=== PATIENT | female | born 1985 | race Caucasian/White ===

== ENCOUNTER 2016-11-20 21:13 | Emergency (ER) | payer OTHER ==
--- NOTE | 2016-11-20 23:13 | ED NURSING NOTES ---
Clinical Report - Nurses [facility] [address] [place] [address] 11/20/2016 21:13 Patient: HARRY QUINTERO TRIAGE Triage time 21:Nov 20 2016. Acuity: LEVEL 3. Chief Complaint: FEVER, CHILLS, HEADACHE, DYSPNEA and COUGH (body aches,). SEPSIS SCREEN: Sepsis Screen: negative. Infection suspected/documented. GORDON COMA SCORE: Gordon Coma Scale: 15- eyes open spontaneously (4); best verbal response- oriented x 4 (5); best motor response- obeys commands (6). --21:30 Urvashi Valerio 21:26 11/20/16. BP: 110/72. HR: 101. RR: 20. O2 saturation: 96% on room air. Temp: 97.7 F (oral). Pain level now: 5/10. --21:30 Urvashi Valerio. Weight: 68 kg stated. Height/Length: 69 inches Per Patient. BMI: 22.2. --21:29 Urvashi Valerio. Medications Iron Oral. --21:28 Urvashi Valerio. Allergies No Known Drug Allergy. --21:29 Urvashi Valerio. Medication/allergy information source: the patient. --21:30 Urvashi Valerio. History Arrived by private vehicle. Historian: patient. Accompanied by family. Primary physician ([facility]). Onset. (3 days ago). ( Patient reports that she has been feeling sick for three days. She reports that there are people at work with the flu. Patient reports that her hand have been turning pale, she feels weak, her throat hurts, and she has been having body aches.). 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 PAST MEDICAL HX: Immunizations: up-to-date. Last normal menstrual period now. SOCIAL HX: Light tobacco smoker (cigarette)- less than 1/2 a pack per day. No alcohol use or drug use. No infectious disease exposure. ABUSE ASSESSMENT: No report of abuse. FALL RISK ASSESSMENT: Fall risk assessment completed. No fall risk identified. NUTRITIONAL RISK ASSESSMENT: The nutritional risk assessment revealed no deficiencies. FUNCTIONAL ASSESSMENT: Functional assessment: no impairments noted. LEARNING NEEDS ASSESSMENT: The learning needs assessment revealed no barriers. SKIN INTEGRITY ASSESSMENT: Skin integrity risk assessment completed. No skin integrity risk identified. --21:30 Urvashi Valerio. PROBLEMS: Anemia. MRSA Infection. Abscess. --21:30 Urvashi Valerio. ADDITIONAL SURGERIES: Appendectomy. --21:30 Urvashi Valerio. Interventions ID band on patient. To treatment room. --21:30 Urvashi Valerio. NURSING PROGRESS NOTES <<STRICKEN ENTRY-- 22:38 11/20/16. BP: 103/68. HR: 101. RR: 20. O2 saturation: 95% on room air. Temp: 102.9 F (oral). Pain level now: 07/12. --22:41 Urvashi Valerio --END STRIKE>> Charted on wrong patient. --23:22 Urvashi Valerio ( Provider notified of vitals). --22:42 Urvashi Valerio 21:30 11/20/16. Pulse oximeter and NIBP monitor placed on patient. Patient gowned. Warming measures: blanket applied. Reassurance given to the patient. Lights dimmed. Two patient identifiers checked. Call light placed in reach. Side rails up x 1. Bed placed in lowest position. Brakes of bed on. Patient ready for evaluation- chart flagged and ED physician notified. --02:13 Urvashi Valerio 22:30 11/20/16. ( Provider ordered patient fluids and zofran, patient prefers to go home and hydrate. Provider notified and patient to be discharged.). --02:14 Urvashi Valerio 23:20 11/20/2016 Ibuprofen PO Tablets 400 mg given. Allergies verified and confirmed 5 rights. --23:20 Urvashi Valerio. DISPOSITION / DISCHARGE 23:11/20/16. Condition at departure: stable. No learning barriers present. Discharge instructions provided and reviewed with the patient and spouse. Reviewed medication(s) side effects, precautions, dosing and course information. Prescription(s) given to the patient. Reviewed need for increased fluid intake. Patient verbalized understanding. Written instructions provided in Maori. The patient was discharged by the physician. She was discharged home and accompanied by spouse. She left the Emergency Department ambulatory and via private vehicle. Spouse driving. --01:56 Urvashi Valerio 23:30 11/20/16. BP: 103/75. HR: 72. RR: 20. O2 saturation: 99% on room air. Temp: 98.1 F (oral). Pain level now: 03/11. --01:56 Urvashi Valerio. Locked/Released at 11/21/2016 2:15 by Urvashi Valerio,
--- NOTE | 2016-11-20 23:13 | ED ORDER SUMMARY ---
..... Patient: HARRY QUINTERO OrderSheet [facility] VisitID: [id number] [place] [address] 30y, F Registration Date/Time: 11/20/2016 ORDER SHEET Weight: 68.0 kg (stated) Allergies: No Known Drug Allergy GENERAL ORDERS: Rapid Influenza Screen (Nasal Pharyngeal) (nsal pharyngeal ) Urgent (21:32 11/20/2016 HSoule per protocol) (Ack 21:32 HSoule) (2:15 HSoule) CBC w Diff Urgent (22:45 11/20/2016 Sami PAREDES) (23:03 Sami PAREDES) (Cancelled: Other23:03 Sami PAREDES) CMP Urgent (22:45 11/20/2016 Sami PAREDES) (23:03 Sami PAREDES) (Cancelled: Other23:03 Sami PAREDES) UA-Culture if indicated Urgent (22:45 11/20/2016 Sami PAREDES) (23:03 Sami PAREDES) (Cancelled: Other23:03 Sami PAREDES) Amylase Urgent (22:45 11/20/2016 Sami PAREDES) (23:03 Sami PAREDES) Lipase Urgent (22:45 11/20/2016 Sami PAREDES) (23:03 Sami PAREDES) (Cancelled: Other23:03 Sami PAREDES) Urine Urgent (22:45 11/20/2016 Sami PAREDES) (23:02 Sami PAREDES) (Cancelled: Other23:03 Sami PAREDES) MEDICATION ORDERS: Ibuprofen PO 400 mg (NOW) (23:07 11/20/2016 Sami PAREDES) (Ack 23:11 HSoule) (23:20 HSoule) IV FLUIDS: IV NS : initial bolus 500 mL (1000 mL/hr), then 125 mL/hr for 4h (NOW); Urgent (22:45 11/20/2016 Sami PAREDES) (Ack 23:11 HSoule) (Cancelled: Physician Order23:23 HSoule) Zofran IV 4 mg (NOW) (22:45 11/20/2016 Sami PAREDES) (Ack 23:11 HSoule) (Cancelled: Patient to have PO zofran, IV orders d/c by provider 23:23 [facility]) ORDER SHEET NOTES: [Electronically signed by Urvashi Valerio (02:15 11/21/2016)] [Electronically signed by Berhane Gilbert MD (05:02 11/21/2016)] [Electronically locked/signed by Urvashi Valerio (02:15 11/21/2016)]
--- NOTE | 2016-11-20 23:13 | ED NURSING NOTES ---
Clinical Report - Nurses [facility] [address] [place] [address] 11/20/2016 21:13 Patient: HARRY QUINTERO TRIAGE Triage time 21:Nov 20 2016. Acuity: LEVEL 3. Chief Complaint: FEVER, CHILLS, HEADACHE, DYSPNEA and COUGH (body aches,). SEPSIS SCREEN: Sepsis Screen: negative. Infection suspected/documented. GORDON COMA SCORE: Gordon Coma Scale: 15- eyes open spontaneously (4); best verbal response- oriented x 4 (5); best motor response- obeys commands (6). --21:30 Urvashi Valerio 21:26 11/20/16. BP: 110/72. HR: 101. RR: 20. O2 saturation: 96% on room air. Temp: 97.7 F (oral). Pain level now: 5/10. --21:30 Urvashi Valerio. Weight: 68 kg stated. Height/Length: 69 inches Per Patient. BMI: 22.2. --21:29 Urvahsi Valerio. Medications Iron Oral. --21:28 Urvashi Valerio. Allergies No Known Drug Allergy. --21:29 Urvashi Valerio. Medication/allergy information source: the patient. --21:30 Urvashi Valerio. History Arrived by private vehicle. Historian: patient. Accompanied by family. Primary physician ([facility]). Onset. (3 days ago). ( Patient reports that she has been feeling sick for three days. She reports that there are people at work with the flu. Patient reports that her hand have been turning pale, she feels weak, her throat hurts, and she has been having body aches.). 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 PAST MEDICAL HX: Immunizations: up-to-date. Last normal menstrual period now. SOCIAL HX: Light tobacco smoker (cigarette)- less than 1/2 a pack per day. No alcohol use or drug use. No infectious disease exposure. ABUSE ASSESSMENT: No report of abuse. FALL RISK ASSESSMENT: Fall risk assessment completed. No fall risk identified. NUTRITIONAL RISK ASSESSMENT: The nutritional risk assessment revealed no deficiencies. FUNCTIONAL ASSESSMENT: Functional assessment: no impairments noted. LEARNING NEEDS ASSESSMENT: The learning needs assessment revealed no barriers. SKIN INTEGRITY ASSESSMENT: Skin integrity risk assessment completed. No skin integrity risk identified. --21:30 Urvashi Valerio. PROBLEMS: Anemia. MRSA Infection. Abscess. --21:30 Urvashi Valerio. ADDITIONAL SURGERIES: Appendectomy. --21:30 Urvashi Valerio. Interventions ID band on patient. To treatment room. --21:30 Urvashi Valerio. NURSING PROGRESS NOTES <<STRICKEN ENTRY-- 22:38 11/20/16. BP: 103/68. HR: 101. RR: 20. O2 saturation: 95% on room air. Temp: 102.9 F (oral). Pain level now: 07/12. --22:41 Urvashi Valerio --END STRIKE>> Charted on wrong patient. --23:22 Urvashi Valerio ( Provider notified of vitals). --22:42 Urvashi Valerio 21:30 11/20/16. Pulse oximeter and NIBP monitor placed on patient. Patient gowned. Warming measures: blanket applied. Reassurance given to the patient. Lights dimmed. Two patient identifiers checked. Call light placed in reach. Side rails up x 1. Bed placed in lowest position. Brakes of bed on. Patient ready for evaluation- chart flagged and ED physician notified. --02:13 Urvashi Valerio 22:30 11/20/16. ( Provider ordered patient fluids and zofran, patient prefers to go home and hydrate. Provider notified and patient to be discharged.). --02:14 Urvashi Valerio 23:20 11/20/2016 Ibuprofen PO Tablets 400 mg given. Allergies verified and confirmed 5 rights. --23:20 Urvashi Valerio. DISPOSITION / DISCHARGE 23:11/20/16. Condition at departure: stable. No learning barriers present. Discharge instructions provided and reviewed with the patient and spouse. Reviewed medication(s) side effects, precautions, dosing and course information. Prescription(s) given to the patient. Reviewed need for increased fluid intake. Patient verbalized understanding. Written instructions provided in Kiswahili. The patient was discharged by the physician. She was discharged home and accompanied by spouse. She left the Emergency Department ambulatory and via private vehicle. Spouse driving. --01:56 Urvashi Valerio 23:30 11/20/16. BP: 103/75. HR: 72. RR: 20. O2 saturation: 99% on room air. Temp: 98.1 F (oral). Pain level now: 03/11. --01:56 Urvashi Valerio. Locked/Released at 11/21/2016 2:15 by Urvashi Valerio,
--- NOTE | 2016-11-20 23:13 | ED CLINICAL REPORT ---
Clinical Report - Physicians/Mid Levels [facility] [address] [place] [address] 11/20/2016 21:13 Patient: HARRY QUINTERO Time Seen: 22:24. Arrived- By private vehicle. Historian- patient. HISTORY OF PRESENT ILLNESS Chief Complaint: COUGH, MUSCLE ACHES and "FLU". This started several days ago and is still present. It was gradual in onset and has been constant and waxing/waning. The illness is described as severe. The patient has had a cough, a sore throat, fever, chills and muscle aches. She has had moderate amounts of thick, yellow sputum. No difficulty breathing or chest discomfort. Additional history - The patient has had contact with a sick coworker. They have had similar symptoms. REVIEW OF SYSTEMS The patient has had fever and chills and experienced sweats. No calf pain, chest pain, difficulty breathing, pedal edema or palpitations. No abdominal pain, constipation, diarrhea, nausea or vomiting. No urinary problems. All systems otherwise negative, except as recorded above. PAST HISTORY Problems: Anemia. MRSA Infection. Abscess. Medications: Iron Oral. Allergies: No Known Drug Allergy. SOCIAL HISTORY Current every day light tobacco smoker (cigarette)- less than 1/2 a pack per day. FAMILY HISTORY Denies family medical history. ADDITIONAL NOTES The nursing notes have been reviewed. PHYSICAL EXAM Vital Signs: 11/20/2016 21:26 BP: 110/72. HR: 101. RR: 20. O2 saturation: 96%. Temp: 97.7 F. Pain level now: 5/10. Have been reviewed. Appearance: Alert. Eyes: Pupils equal, round and reactive to light. ENT: Minimal, thin, clear nasal discharge present. Pharynx normal. Neck: Normal inspection. Neck supple. No meningeal signs or lymphadenopathy. CVS: Normal heart rate and rhythm. Heart sounds normal. Respiratory: No respiratory distress. (rattle over large airways that clears with cough). Abdomen: Soft and nontender. No organomegaly. Back: Normal inspection. Skin: Skin warm and dry. Normal skin color. Normal skin turgor. Extremities: Extremities exhibit normal ROM. No calf tenderness. No lower extremity edema. LABS, X-RAYS, AND EKG Laboratory Tests: Rapid Influenza Screen: (KLARISSA: 11/20/2016 21:10) ( MsgRcvd 11/20/2016 22:08) Final results SPECIMEN DESCRIPTION: NSAL PHARYNGEAL Test Result Flag Units (Reference) RAPID INFLUENZA SCREEN DATE: 11/20/16 INFLUENZA A: NEGATIVE SCREEN FOR INFLUENZA A INFLUENZA B: NEGATIVE SCREEN FOR INFLUENZA B . PROGRESS AND PROCEDURES Course of Care: Patient is stable. Patient/family counseled. Old medical records reviewed. Disposition: Discharged. Condition: stable. CLINICAL IMPRESSION Acute bronchitis. INSTRUCTIONS Do not work today, tomorrow. Drink plenty of fluids. Do not smoke- benefits of smoking cessation discussed (>3 -10 minutes). Seek medical help to quit smoking. Warnings: GENERAL WARNINGS: Return or contact your physician immediately if your condition worsens or changes unexpectedly, if not improving as expected, or if other problems arise. Prescription Medications: Albuterol HFA oral inhaler: inhale 2 puffs via spacer every 4 hours as needed. Dispense one (1) unit. No refill. Tessalon Perles 100 mg: take 1 orally every 8 hours as needed for cough. Dispense fifteen (15). No refills. Substitution is permissible. Zithromax 250 mg tablets: take 2 orally today, followed by 1 daily for the next 4 days. No refills. Substitution is permissible. OTC Medications: Acetaminophen (available over the counter): take according to label instructions. Motrin (available over the counter): take according to label instructions. Follow-up: Follow up with your doctor in five days if not better. Understanding of the discharge instructions verbalized by patient. (Electronically signed by Berhane Gilbert MD 11/21/2016 5:02)
--- NOTE | 2016-11-20 23:13 | ED ORDER SUMMARY ---
..... Patient: HARRY QUINTERO OrderSheet VisitID: [id number] [place] [address] 30y, F Registration Date/Time: 11/20/2016 ORDER SHEET Weight: 68.0 kg (stated) Allergies: No Known Drug Allergy GENERAL ORDERS: Rapid Influenza Screen (Nasal Pharyngeal) (nsal pharyngeal ) Urgent (21:32 11/20/2016 HSoule per protocol) (Ack 21:32 HSoule) (2:15 HSoule) CBC w Diff Urgent (22:45 11/20/2016 Sami PAREDES) (23:03 Sami PAREDES) (Cancelled: Other23:03 Sami PAREDES) CMP Urgent (22:45 11/20/2016 Sami PAREDES) (23:03 Sami PAREDES) (Cancelled: Other23:03 Sami PAREDES) UA-Culture if indicated Urgent (22:45 11/20/2016 Sami PAREDES) (23:03 Sami PAREDES) (Cancelled: Other23:03 Sami PAREDES) Amylase Urgent (22:45 11/20/2016 Sami PAREDES) (23:03 Sami PAREDES) Lipase Urgent (22:45 11/20/2016 Sami PAREDES) (23:03 Sami PAREDES) (Cancelled: Other23:03 Sami PAREDES) Urine Urgent (22:45 11/20/2016 Sami PAREDES) (23:02 Sami PAREDES) (Cancelled: Other23:03 Sami PAREDES) MEDICATION ORDERS: Ibuprofen PO 400 mg (NOW) (23:07 11/20/2016 Sami PAREDES) (Ack 23:11 HSoule) (23:20 HSoule) IV FLUIDS: IV NS : initial bolus 500 mL (1000 mL/hr), then 125 mL/hr for 4h (NOW); Urgent (22:45 11/20/2016 Sami PAREDES) (Ack 23:11 HSoule) (Cancelled: Physician Order23:23 HSoule) Zofran IV 4 mg (NOW) (22:45 11/20/2016 Sami PAREDES) (Ack 23:11 HSoule) (Cancelled: Patient to have PO zofran, IV orders d/c by provider 23:23 [facility]) ORDER SHEET NOTES: [Electronically signed by Urvashi Valerio (02:15 11/21/2016)] [Electronically signed by Berhane Gilbert MD (05:02 11/21/2016)] [Electronically locked/signed by Urvashi Valerio (02:15 11/21/2016)]
--- NOTE | 2016-11-21 05:03 | ED MAR SUMMARY ---
..... Medication Administration Record [facility] [address] [place] [address] Patient: HARRY QUINTERO Visit ID: [id number] 30y, F Weight: 68.0 kg Height/Length: 69 in BMI: 22.2 ALLERGIES: No Known Drug Allergy Given 23:20 11/20/2016 Urvashi Valerio, Medication Administered: IBUPROFEN [PO], Dose: 400 mg Tablets PO. Medication Ordered: Ibuprofen PO 400 mg (NOW).
--- NOTE | 2016-11-21 05:03 | ED DISCHARGE INSTRUCTIONS ---
Patient: HARRY QUINTERO General Instructions [facility] VisitID: [id number] [place] [address] 30y, F Registration Date/Time: 11/20/2016 Acute bronchitis. INSTRUCTIONS Do not work today, tomorrow. Drink plenty of fluids. Do not smoke- benefits of smoking cessation discussed (>3 -10 minutes). Seek medical help to quit smoking. Warnings: GENERAL WARNINGS: Return or contact your physician immediately if your condition worsens or changes unexpectedly, if not improving as expected, or if other problems arise. Prescription Medications: Albuterol HFA oral inhaler: inhale 2 puffs via spacer every 4 hours as needed. Dispense one (1) unit. No refill. Tessalon Perles 100 mg: take 1 orally every 8 hours as needed for cough. Dispense fifteen (15). No refills. Substitution is permissible. Zithromax 250 mg tablets: take 2 orally today, followed by 1 daily for the next 4 days. No refills. Substitution is permissible. OTC Medications: Acetaminophen (available over the counter): take according to label instructions. Motrin (available over the counter): take according to label instructions. Follow-up: Follow up with your doctor in five days if not better. Understanding of the discharge instructions verbalized by patient. ADDITIONAL INFORMATION Bronchitis (Adult: Abx Tx) BRONCHITIS is an infection of the air passages (bronchial tubes). It often occurs during the common cold. Symptoms include cough with mucus (phlegm) and low-grade fever. Bronchitis usually lasts 7-14 days. Mild cases can be treated with simple home remedies. More severe infection is treated with an antibiotic. Home Care: If symptoms are severe, rest at home for the first 2-3 days. When you resume activity, don't let yourself get too tired. Do not smoke. Avoid being exposed to the smoke of others. You may use acetaminophen (Tylenol) or ibuprofen (Motrin, Advil) to control fever or pain, unless another medicine was prescribed for this. [NOTE: If you have chronic liver or kidney disease or ever had a stomach ulcer or GI bleeding, talk with your doctor before using these medicines.] Your appetite may be poor, so a light diet is fine. Avoid dehydration by drinking 6-8 glasses of fluids per day (water, soft, drinks, juices, tea, soup, etc.). Extra fluids will help loosen secretions in the lungs. Iaxa-zvv-dhdvszt cough medicines that containdextromethorphan(such as Robitussin DM) and decongestants (Actifed or Sudafed) may help relieve cough and congestion. [NOTE: Do not use decongestants if you have high blood pressure.] Finish all antibiotic medicine, even if you are feeling better after only a few days. Follow Up with your doctor or as directed if you dont start to feel better after three days. [NOTE: If you are age 65 or older, or if you have chronic asthma or COPD, we recommend a PNEUMOCOCCAL VACCINATION every five years and a yearly INFLUENZAVACCINATION (FLU-SHOT) every . Ask your doctor about this. If you had an X-ray, a radiologist will review it. You will be notified of any new findings that may affect your care.] Get Prompt Medical Attention if any of the following occur: Fever over 100.4F (38.0C) for more than three days Trouble breathing, wheezing or pain with breathing Coughing up blood or increased amounts of colored sputum Weakness, drowsiness, headache, facial pain, ear pain or a stiff neck How To Quit Smoking Smoking is one of the hardest habits to break. About half of all those who have ever smoked have been able to quit, and most of those (about 70%) who still smoke want to quit. Here are some of the best ways to stop smoking. Keep Trying: It takes most smokers about 8 tries before they are finally able to fully quit. So, the more often you try and fail, the better your chance of quitting the next time! So, don't give up! Go Cold [place]: Most ex-smokers quit cold turkey. Trying to cut back gradually doesn't seem to work as well, perhaps because it continues the smoking habit. Also, it is possible to fool yourself by inhaling more while smoking fewer cigarettes. This results in the same amount of nicotine in your body! Get Support: Support programs can make an important difference, especially for the heavy smoker. These groups offer lectures, methods to change your behavior and peer support. Call the free national Quitline for more information. 546-ZTXG-CPT (711-173-6039). Low-cost or free programs are offered by many hospitals, local chapters of the [employer] (640-227-6079) and the [employer] (410-582-1764). Support at home is important too. Non-smokers can help by offering praise and encouragement. If the smoker fails to quit, encourage them to try again! Bbaw-Pab-Amzwwnt Medicines: For those who can't quit on their own, Nicotine Replacement Therapy (NRT) may make quitting much easier. Certain aids such as the nicotine patch, gum and lozenge are available without a prescription. However, it is best to use these under the guidance of your doctor. The skin patch provides a steady supply of nicotine to the body. Nicotine gum and lozenge gives temporary bursts of low levels of nicotine. Both methods take the edge off the craving for cigarettes. WARNING: If you feel symptoms of nicotine overdose, such as nausea, vomiting, dizziness, weakness, or fast heartbeat, stop using these and see your doctor. Prescription Medicines: After evaluating your smoking patterns and prior attempts at quitting, your doctor may offer a prescription medicine such as bupropion (Zyban, Wellbutrin), varenicline (Chantix, Champix), a niocotine inhaler or nasal spray. Each has its unique advantage and side effects which your doctor can review with you. Health Benefits Of Quitting: The benefits of quitting start right away and keep improving the longer you go without smokin minutes: blood pressure and pulse return to normal 8 hours: oxygen levels return to normal 2 days: ability to smell and taste begins to improve as damaged nerves start to regrow 2-3 weeks: circulation and lung function improves 1-9 months: decreased cough, congestion and shortness of breath; less tired 1 year: risk of heart attack decreases by half 5 years: risk of lung cancer decreases by half; risk of stroke becomes the same as a non-smoker For information about how to quit smoking, visit the following links: National Cancer [place] , Clearing the Air, Quit Smoking Today - an online booklet. http://www.smokefree.gov/pubs/clearing_the_air.pdf Smokefree.gov http://smokefree.gov/ QuitNet http://www.quitnet.com/ Albuterol Sulfate Pressurized inhalation, suspension What is this medicine? ALBUTEROL (al BYOO ter ole) is a bronchodilator. It helps open up the airways in your lungs to make it easier to breathe. This medicine is used to treat and to prevent bronchospasm. How should I use this medicine? This medicine is for inhalation through the mouth. Follow the directions on your prescription label. Take your medicine at regular intervals. Do not use more often than directed. Make sure that you are using your inhaler correctly. Ask you doctor or health care provider if you have any questions. Talk to your salon customer experience specialist regarding the use of this medicine in children. Special care may be needed. What side effects may I notice from receiving this medicine? Side effects that you should report to your doctor or health plant health care technician as soon as possible: allergic reactions like skin rash, itching or hives, swelling of the face, lips, or tongue breathing problems chest pain feeling faint or lightheaded, falls high blood pressure irregular heartbeat fever muscle cramps or weakness pain, tingling, numbness in the hands or feet vomiting Side effects that usually do not require medical attention (report to your doctor or health plant health care technician if they continue or are bothersome): cough difficulty sleeping headache nervousness or trembling stomach upset stuffy or runny nose throat irritation unusual taste What may interact with this medicine? anti-infectives like chloroquine and pentamidine caffeine cisapride diuretics medicines for colds medicines for depression or for emotional or psychotic conditions medicines for weight loss including some herbal products methadone some antibiotics like clarithromycin, erythromycin, levofloxacin, and linezolid some heart medicines steroid hormones like dexamethasone, cortisone, hydrocortisone theophylline thyroid hormones What if I miss a dose? If you miss a dose, use it as soon as you can. If it is almost time for your next dose, use only that dose. Do not use double or extra doses. Where should I keep my medicine? Keep out of the reach of children. Store at room temperature between 15 and 30 degrees C (59 and 86 degrees F). The contents are under pressure and may burst when exposed to heat or flame. Do not freeze. This medicine does not work as well if it is too cold. Throw away any unused medicine after the expiration date. Inhalers need to be thrown away after the labeled number of puffs have been used or by the expiration date; whichever comes first. Ventolin HFA should be thrown away 12 months after removing from foil pouch. Check the instructions that come with your medicine. What should I tell my health care provider before I take this medicine? They need to know if you have any of the following conditions: diabetes heart disease or irregular heartbeat high blood pressure pheochromocytoma seizures thyroid disease an unusual or allergic reaction to albuterol, levalbuterol, sulfites, other medicines, foods, dyes, or preservatives or trying to get breast-feeding What should I watch for while using this medicine? Tell your doctor or health plant health care technician if your symptoms do not improve. Do not use extra albuterol. If your asthma or bronchitis gets worse while you are using this medicine, call your doctor right away. If your mouth gets dry try chewing sugarless gum or sucking hard candy. Drink water as directed. Benzonatate Oral capsule, liquid filled What is this medicine? BENZONATATE (bear JOHNIE na cummings) is used to treat cough. How should I use this medicine? Take this medicine by mouth with a glass of water. Follow the directions on the prescription label. Avoid breaking, chewing, or sucking the capsule, as this can cause serious side effects. Take your medicine at regular intervals. Do not take your medicine more often than directed. Talk to your salon customer experience specialist regarding the use of this medicine in children. While this drug may be prescribed for children as young as 10 years old for selected conditions, precautions do apply. What side effects may I notice from receiving this medicine? Side effects that you should report to your doctor or health plant health care technician as soon as possible: allergic reactions like skin rash, itching or hives, swelling of the face, lips, or tongue breathing problems chest pain confusion or hallucinations irregular heartbeat numbness of mouth or throat seizures Side effects that usually do not require medical attention (report to your doctor or health plant health care technician if they continue or are bothersome): burning feeling in the eyes constipation headache nasal congestion stomach upset What may interact with this medicine? Do not take this medicine with any of the following medications: MAOIs like Carbex, Eldepryl, Marplan, Nardil, and Parnate What if I miss a dose? If you miss a dose, take it as soon as you can. If it is almost time for your next dose, take only that dose. Do not take double or extra doses. Where should I keep my medicine? Keep out of the reach of children. Store at room temperature between 15 and 30 degrees C (59 and 86 degrees F). Keep tightly closed. Protect from light and moisture. Throw away any unused medicine after the expiration date. What should I tell my health care provider before I take this medicine? They need to know if you have any of these conditions: kidney or liver disease an unusual or allergic reaction to benzonatate, anesthetics, other medicines, foods, dyes, or preservatives or trying to get breast-feeding What should I watch for while using this medicine? Tell your doctor if your symptoms do not improve or if they get worse. If you have a high fever, skin rash, or headache, see your health plant health care technician. You may get drowsy or dizzy. Do not drive, use machinery, or do anything that needs mental alertness until you know how this medicine affects you. Do not sit or stand up quickly, especially if you are an older patient. This reduces the risk of dizzy or fainting spells. Azithromycin Oral tablet What is this medicine? AZITHROMYCIN (az ith jamin MYE sin) is a macrolide antibiotic. It is used to treat or prevent certain kinds of bacterial infections. It will not work for colds, flu, or other viral infections. How should I use this medicine? Take this medicine by mouth with a full glass of water. Follow the directions on the prescription label. The tablets can be taken with food or on an empty stomach. If the medicine upsets your stomach, take it with food. Take your medicine at regular intervals. Do not take your medicine more often than directed. Take all of your medicine as directed even if you think your are better. Do not skip doses or stop your medicine early. Talk to your salon customer experience specialist regarding the use of this medicine in children. Special care may be needed. What side effects may I notice from receiving this medicine? Side effects that you should report to your doctor or health plant health care technician as soon as possible: allergic reactions like skin rash, itching or hives, swelling of the face, lips, or tongue confusion, nightmares or hallucinations dark urine difficulty breathing hearing loss irregular heartbeat or chest pain pain or difficulty passing urine redness, blistering, peeling or loosening of the skin, including inside the mouth white patches or sores in the mouth yellowing of the eyes or skin Side effects that usually do not require medical attention (report to your doctor or health plant health care technician if they continue or are bothersome): diarrhea dizziness, drowsiness headache stomach upset or vomiting tooth discoloration vaginal irritation What may interact with this medicine? Do not take this medicine with any of the following medications: lincomycin This medicine may also interact with the following medications: amiodarone antacids cyclosporine digoxin magnesium nelfinavir phenytoin warfarin What if I miss a dose? If you miss a dose, take it as soon as you can. If it is almost time for your next dose, take only that dose. Do not take double or extra doses. Where should I keep my medicine? Keep out of the reach of children. Store at room temperature between 15 and 30 degrees C (59 and 86 degrees F). Throw away any unused medicine after the expiration date. What should I tell my health care provider before I take this medicine? They need to know if you have any of these conditions: kidney disease liver disease irregular heartbeat or heart disease an unusual or allergic reaction to azithromycin, erythromycin, other macrolide antibiotics, foods, dyes, or preservatives or trying to get breast-feeding What should I watch for while using this medicine? Tell your doctor or health plant health care technician if your symptoms do not improve. Do not treat diarrhea with over the counter products. Contact your doctor if you have diarrhea that lasts more than 2 days or if it is severe and watery. This medicine can make you more sensitive to the sun. Keep out of the sun. If you cannot avoid being in the sun, wear protective clothing and use sunscreen. Do not use sun lamps or tanning beds/booths. Acetaminophen Oral tablet What is this medicine? ACETAMINOPHEN (a set a DANIEL garcia fen) is a pain reliever. It is used to treat mild pain and fever. How should I use this medicine? Take this medicine by mouth with a glass of water. Follow the directions on the package or prescription label. Take your medicine at regular intervals. Do not take your medicine more often than directed. Talk to your salon customer experience specialist regarding the use of this medicine in children. While this drug may be prescribed for children as young as 6 years of age for selected conditions, precautions do apply. What side effects may I notice from receiving this medicine? Side effects that you should report to your doctor or health plant health care technician as soon as possible: allergic reactions like skin rash, itching or hives, swelling of the face, lips, or tongue breathing problems fever or sore throat redness, blistering, peeling or loosening of the skin, including inside the mouth trouble passing urine or change in the amount of urine unusual bleeding or bruising unusually weak or tired yellowing of the eyes or skin Side effects that usually do not require medical attention (report to your doctor or health plant health care technician if they continue or are bothersome): headache nausea, stomach upset What may interact with this medicine? alcohol imatinib isoniazid other medicines with acetaminophen What if I miss a dose? If you miss a dose, take it as soon as you can. If it is almost time for your next dose, take only that dose. Do not take double or extra doses. Where should I keep my medicine? Keep out of reach of children. Store at room temperature between 20 and 25 degrees C (68 and 77 degrees F). Protect from moisture and heat. Throw away any unused medicine after the expiration date. What should I tell my health care provider before I take this medicine? They need to know if you have any of these conditions: if you frequently drink alcohol containing drinks liver disease an unusual or allergic reaction to acetaminophen, other medicines, foods, dyes or preservatives or trying to get breast-feeding What should I watch for while using this medicine? Tell your doctor or health plant health care technician if the pain lasts more than 10 days (5 days for children), if it gets worse, or if there is a new or different kind of pain. Also, check with your doctor if a fever lasts for more than 3 days. Do not take other medicines that contain acetaminophen with this medicine. Always read labels carefully. If you have questions, ask your doctor or pharmacist. If you take too much acetaminophen get medical help right away. Too much acetaminophen can be very dangerous and cause liver damage. Even if you do not have symptoms, it is important to get help right away. Ibuprofen Oral tablet What is this medicine? IBUPROFEN (eye BYOO proe fen) is a non-steroidal anti-inflammatory drug (NSAID). It is used for dental pain, fever, headaches or migraines, osteoarthritis, rheumatoid arthritis, or painful monthly periods. It can also relieve minor aches and pains caused by a cold, flu, or sore throat. How should I use this medicine? Take this medicine by mouth with a glass of water. Follow the directions on the prescription label. Take this medicine with food if your stomach gets upset. Try to not lie down for at least 10 minutes after you take the medicine. Take your medicine at regular intervals. Do not take your medicine more often than directed. A special MedGuide will be given to you by the pharmacist with each prescription and refill. Be sure to read this information carefully each time. Talk to your salon customer experience specialist regarding the use of this medicine in children. Special care may be needed. What side effects may I notice from receiving this medicine? Side effects that you should report to your doctor or health plant health care technician as soon as possible: allergic reactions like skin rash, itching or hives, swelling of the face, lips, or tongue black or bloody stools, blood in the urine or in vomit breathing problems changes in vision chest pain general ill feeling or flu-like symptoms nausea or vomiting redness, blistering, peeling or loosening of the skin, including inside the mouth slurred speech or weakness on one side of the body stomach pain unexplained weight gain or swelling unusually weak or tired yellowing of eyes or skin Side effects that usually do not require medical attention (report to your doctor or health plant health care technician if they continue or are bothersome): constipation or diarrhea dizziness gas or heartburn stomach upset What may interact with this medicine? Do not take this medicine with any of the following medications: cidofovir ketorolac methotrexate pemetrexed This medicine may also interact with the following medications: alcohol aspirin diuretics lithium other drugs for inflammation like prednisone warfarin What if I miss a dose? If you miss a dose, take it as soon as you can. If it is almost time for your next dose, take only that dose. Do not take double or extra doses. Where should I keep my medicine? Keep out of the reach of children. Store at room temperature between 15 and 30 degrees C (59 and 86 degrees F). Keep container tightly closed. Throw away any unused medicine after the expiration date. What should I tell my health care provider before I take this medicine? They need to know if you have any of these conditions: asthma cigarette smoker drink more than 3 alcohol containing drinks a day heart disease or circulation problems such as heart failure or leg edema (fluid retention) high blood pressure kidney disease liver disease stomach bleeding or ulcers an unusual or allergic reaction to ibuprofen, aspirin, other NSAIDS, other medicines, foods, dyes, or preservatives or trying to get breast-feeding What should I watch for while using this medicine? Tell your doctor or healthcare professional if your symptoms do not start to get better or if they get worse. This medicine does not prevent heart attack or stroke. In fact, this medicine may increase the chance of a heart attack or stroke. The chance may increase with longer use of this medicine and in people who have heart disease. If you take aspirin to prevent heart attack or stroke, talk with your doctor or health plant health care technician. Do not take other medicines that contain aspirin, ibuprofen, or naproxen with this medicine. Side effects such as stomach upset, nausea, or ulcers may be more likely to occur. Many medicines available without a prescription should not be taken with this medicine. This medicine can cause ulcers and bleeding in the stomach and intestines at any time during treatment. Ulcers and bleeding can happen without warning symptoms and can cause . To reduce your risk, do not smoke cigarettes or drink alcohol while you are taking this medicine. You may get drowsy or dizzy. Do not drive, use machinery, or do anything that needs mental alertness until you know how this medicine affects you. Do not stand or sit up quickly, especially if you are an older patient. This reduces the risk of dizzy or fainting spells. This medicine can cause you to bleed more easily. Try to avoid damage to your teeth and gums when you brush or floss your teeth. You have been given the following additional information: Bronchitis, Antiobiotic Treatment (Adult) Smoking Cessation Albuterol Sulfate Pressurized inhalation, suspension Benzonatate Oral capsule, liquid filled Azithromycin Oral tablet Acetaminophen Oral tablet Ibuprofen Oral tablet Do not work today, tomorrow. (Electronically signed by Berhane Gilbert MD 11/21/2016 5:02)
--- NOTE | 2016-11-21 05:03 | ED MED RECONCILIATION SUMMARY ---
Patient: HARRY QUINTERO Medication Reconciliation Report [facility] VisitID: [id number] [place] [address] 30y, F Registration Date/Time: 11/20/2016 Weight: 68.0 kg Height/Length: 69 in. BMI: 22.2 ALLERGIES: No Known Drug Allergy The patient's Home Medications are listed below: THE FOLLOWING MEDICATIONS NEED TO BE RECONCILED: Iron Oral The source(s) of the original Home Medication information: patient The following Medications were given to the patient in the Emergency Department: Ibuprofen [PO] PO 400 mg, administered: 11/20/2016 11:20:00 PM The following Medications were prescribed to the patient: Acetaminophen (available over the counter): take according to label instructions. -- Berhane Gilbert MD Motrin (available over the counter): take according to label instructions. -- Berhane Gilbert MD Albuterol HFA oral inhaler: inhale 2 puffs via spacer every 4 hours as needed. Dispense one (1) unit. No refill. -- Berhane Gilbert MD Tessalon Perles 100 mg: take 1 orally every 8 hours as needed for cough. Dispense fifteen (15). No refills. Substitution is permissible. -- Berhane Gilbert MD Zithromax 250 mg tablets: take 2 orally today, followed by 1 daily for the next 4 days. No refills. Substitution is permissible. -- Berhane Gilbert MD
--- NOTE | 2016-11-21 05:03 | ED MAR SUMMARY ---
..... Medication Administration Record [facility] [address] [place] [address] Patient: HARRY QUINTERO Visit ID: [id number] 30y, F Weight: 68.0 kg Height/Length: 69 in BMI: 22.2 ALLERGIES: No Known Drug Allergy Given 23:20 11/20/2016 Urvashi Valerio, Medication Administered: IBUPROFEN [PO], Dose: 400 mg Tablets PO. Medication Ordered: Ibuprofen PO 400 mg (NOW).
--- NOTE | 2016-11-21 05:03 | ED MED RECONCILIATION SUMMARY ---
Patient: HARRY QUINTERO Medication Reconciliation Report [facility] VisitID: [id number] [place] [address] 30y, F Registration Date/Time: 11/20/2016 Weight: 68.0 kg Height/Length: 69 in. BMI: 22.2 ALLERGIES: No Known Drug Allergy The patient's Home Medications are listed below: THE FOLLOWING MEDICATIONS NEED TO BE RECONCILED: Iron Oral The source(s) of the original Home Medication information: patient The following Medications were given to the patient in the Emergency Department: Ibuprofen [PO] PO 400 mg, administered: 11/20/2016 11:20:00 PM The following Medications were prescribed to the patient: Acetaminophen (available over the counter): take according to label instructions. -- Berhane Gilbert MD Motrin (available over the counter): take according to label instructions. -- Berhane Gilbert MD Albuterol HFA oral inhaler: inhale 2 puffs via spacer every 4 hours as needed. Dispense one (1) unit. No refill. -- Berhane Gilbert MD Tessalon Perles 100 mg: take 1 orally every 8 hours as needed for cough. Dispense fifteen (15). No refills. Substitution is permissible. -- Berhane Gilbert MD Zithromax 250 mg tablets: take 2 orally today, followed by 1 daily for the next 4 days. No refills. Substitution is permissible. -- Berhane Gilbert MD
== END 2016-11-20 23:30 | disposition home or self-care (01) ==
LOC: ED SRH 21:13
DX: J20.9 Acute bronchitis, unspecified (principal); F17.200 Nicotine dependence, unspecified, uncomplicated
CPT/HCPCS: 91400

== ENCOUNTER → 2016-11-20 | Emergency (ER) | payer OTHER ==
--- NOTE | 2016-11-20 21:02 | ED NURSING NOTES ---
Clinical Report - Nurses [facility] [address] [place] [address] 11/20/2016 18:08 Patient: HARRY QUINTERO TRIAGE Triage time 18:37. Acuity: LEVEL 4. Chief Complaint: FEVER, COUGH, SORE THROAT and BODY ACHES. --18:39 Carol Stephen R.N. 18:36 11/20/16. BP: 119/73. HR: 118. RR: 22. O2 saturation: 99%. Temp: 98.4 F. Pain level now: 03/11. Additional comments: all over body aches . --18:39 Carol Stephen R.N. Weight: 68 kg stated. Height/Length: 69 inches Per Patient. BMI: 22.2. --18:38 Carol Stephen R.N. Medications None. --18:38 Carol Stephen R.N. Allergies No Known Drug Allergy. --18:38 Carol Stephen R.N. History Arrived by private vehicle. Historian: patient. Accompanied by family. Primary physician (Campbell Grajeda). Onset. (3 days ago). She has had chills, fatigue and a headache. 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 PAST MEDICAL HX: ( MRSA infection). SOCIAL HX: Current every day light tobacco smoker- less than 1/2 a pack per day. Patient refuses to answer tobacco use questions. No alcohol use or drug use. No infectious disease exposure. --18:39 Carol Stephen R.N. Interventions ID band on patient. To waiting room. --18:39 Carol Stephen R.N. NURSING PROGRESS NOTES 20:54 Patient cannot be located in waiting area. --20:57 Erica Crawford ER Tech1 21:01 Patient cannot be located in waiting area, second attempt. --21:01 Erica Crawford, ER Tech1 ( Patient was sitting with spouse away from waiting room and did not hear her name called. When she went to registration to ask about the wait she was told that she was called three times and taken out of the system. Patient registered again and was seen.). --02:11 Urvashi Valerio. DISPOSITION / DISCHARGE The patient left the Emergency Department without being seen by a physician. --21:02 Erica Crawford, ER Tech1. Locked/Released at 11/25/2016 10:34 by Jodee Bañuelos R.N.
--- NOTE | 2016-11-20 21:02 | ED NURSING NOTES ---
Clinical Report - Nurses [facility] [address] [place] [address] 11/20/2016 18:08 Patient: HARRY QUINTERO TRIAGE Triage time 18:37. Acuity: LEVEL 4. Chief Complaint: FEVER, COUGH, SORE THROAT and BODY ACHES. --18:39 Carol Stephen R.N. 18:36 11/20/16. BP: 119/73. HR: 118. RR: 22. O2 saturation: 99%. Temp: 98.4 F. Pain level now: 03/11. Additional comments: all over body aches . --18:39 Carol Stephen R.N. Weight: 68 kg stated. Height/Length: 69 inches Per Patient. BMI: 22.2. --18:38 Carol Stephen R.N. Medications None. --18:38 Carol Stephen R.N. Allergies No Known Drug Allergy. --18:38 Carol Stephen R.N. History Arrived by private vehicle. Historian: patient. Accompanied by family. Primary physician (Campbell Grajeda). Onset. (3 days ago). She has had chills, fatigue and a headache. 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 PAST MEDICAL HX: ( MRSA infection). SOCIAL HX: Current every day light tobacco smoker- less than 1/2 a pack per day. Patient refuses to answer tobacco use questions. No alcohol use or drug use. No infectious disease exposure. --18:39 Carol Stephen R.N. Interventions ID band on patient. To waiting room. --18:39 Carol Stephen R.N. NURSING PROGRESS NOTES 20:54 Patient cannot be located in waiting area. --20:57 Erica Crawford ER Tech1 21:01 Patient cannot be located in waiting area, second attempt. --21:01 Erica Crawford, ER Tech1 ( Patient was sitting with spouse away from waiting room and did not hear her name called. When she went to registration to ask about the wait she was told that she was called three times and taken out of the system. Patient registered again and was seen.). --02:11 Urvashi Valerio. DISPOSITION / DISCHARGE The patient left the Emergency Department without being seen by a physician. --21:02 Erica Crawford, ER Tech1. Locked/Released at 11/25/2016 10:34 by Jodee Bañuelos R.N.
--- NOTE | 2016-11-25 10:35 | ED MED RECONCILIATION SUMMARY ---
Patient: HARRY QUINTERO Medication Reconciliation Report [facility] VisitID: [id number] [address] [place] [place] [address] 30y, F Registration Date/Time: 11/20/2016 Weight: 68.0 kg Height/Length: 69 in. BMI: 22.2 ALLERGIES: No Known Drug Allergy The patient's Home Medications are listed below: NONE. The source(s) of the original Home Medication information: Not obtained. The following Medications were given to the patient in the Emergency Department: None. The following Medications were prescribed to the patient: None.
--- NOTE | 2016-11-25 10:35 | ED MAR SUMMARY ---
..... Medication Administration Record [facility] [address] [place], [place] [id number] Patient: HARRY QUINTERO Visit ID: [id number] 30y, F Weight: 68.0 kg Height/Length: 69 in BMI: 22.2 ALLERGIES: No Known Drug Allergy
--- NOTE | 2016-11-25 10:35 | ED MAR SUMMARY ---
..... Medication Administration Record [facility] [address] [place], [place] [id number] Patient: HARRY QUINTERO Visit ID: [id number] 30y, F Weight: 68.0 kg Height/Length: 69 in BMI: 22.2 ALLERGIES: No Known Drug Allergy
--- NOTE | 2016-11-25 10:35 | ED MED RECONCILIATION SUMMARY ---
Patient: HARRY QUINTERO Medication Reconciliation Report [facility] VisitID: [id number] [address] [place] [place] [address] 30y, F Registration Date/Time: 11/20/2016 Weight: 68.0 kg Height/Length: 69 in. BMI: 22.2 ALLERGIES: No Known Drug Allergy The patient's Home Medications are listed below: NONE. The source(s) of the original Home Medication information: Not obtained. The following Medications were given to the patient in the Emergency Department: None. The following Medications were prescribed to the patient: None.
== END | disposition left against medical advice (07) ==
LOC: ED SRH 18:09
DX: Z53.21 Procedure and treatment not carried out due to patient leaving prior to being seen by health care provider (principal)